=== PATIENT | male | born 1950 | race Asian ===

== ENCOUNTER 2018-11-27 20:05 | Emergency (ER) | payer OTHER ==
[~2018-11-27] VITALS: Ht 172.7 cm; Wt 111.1 kg
[2018-11-27 21:36] LABS: PLATELET COUNT 126 K/uL (142-355)
[2018-11-27 21:55] LABS: POTASSIUM 3.8 mmol/L (3.6-5.2)
[2018-11-27 22:30] VITALS: BP 169/99; TEMP 98
[2018-11-28] MEDS ORDERED: AQUABASE EX (09:17)
[2018-11-28] MEDS ORDERED: AMLODIPINE BESYLATE PO (09:17)
[2018-11-28] MEDS ORDERED: ASPIR-LOW81 MG PO (09:18)
[2018-11-28] MEDS ORDERED: CARV12.5 PO (09:18)
[2018-11-28] MEDS ORDERED: EQL VITAMIN PO (09:19)
[2018-11-28] MEDS ORDERED: D2000 ULTRA2000 UNIT PO (09:19)
[2018-11-28] MEDS ORDERED: HYDR25TA60 PO (09:20)
[2018-11-28] MEDS ORDERED: INSUINJ47 SC (09:21)
[2018-11-28] MEDS ORDERED: ISOS60TA6 PO (09:21)
[2018-11-28] MEDS ORDERED: LISI20TA11 PO (09:22)
[2018-11-28] MEDS ORDERED: TAMSULOSIN0.4 MG PO (09:22)
[2018-11-28] MEDS ORDERED: SIMV40TA57 (09:22)
[2018-11-28] MEDS ORDERED: METFORMIN ER1000 MG PO (09:22)
[2018-11-28] MEDS ORDERED: BRIMONIDINE0.2 % OTIC (09:23)
[2018-11-28] MEDS ORDERED: XALATAN0.005 % OTIC (09:24)
[2018-11-28] MEDS ORDERED: DORZOLAMIDE HYD1 SOL OTIC (09:24)
== END 2018-11-27 22:35 | disposition home or self-care (01) ==
LOC: ED 20:05
PROVIDERS: Internal Medicine
DX: I80.3 Phlebitis and thrombophlebitis of lower extremities, unspecified (principal); M79.604 Pain in right leg; R22.41 Localized swelling, mass and lump, right lower limb
CPT/HCPCS: 36415; 80053; 85027; 96372; 99283; J0696; J1650

== ENCOUNTER 2018-11-28 08:54 | Emergency (ER) | payer OTHER ==
[~2018-11-28] VITALS: Ht 172.7 cm; Wt 111.1 kg
[2018-11-28 09:04] VITALS: TEMP 98.1
[2018-11-28] MEDS ORDERED: AMLODIPINE BESYLATE PO (09:17)
[2018-11-28] MEDS ORDERED: AQUABASE EX (09:17)
[2018-11-28] MEDS ORDERED: ASPIR-LOW81 MG PO (09:18)
[2018-11-28] MEDS ORDERED: CARV12.5 PO (09:18)
[2018-11-28] MEDS ORDERED: D2000 ULTRA2000 UNIT PO (09:19)
[2018-11-28] MEDS ORDERED: EQL VITAMIN PO (09:19)
[2018-11-28] MEDS ORDERED: HYDR25TA60 PO (09:20)
[2018-11-28] MEDS ORDERED: INSUINJ47 SC (09:21)
[2018-11-28] MEDS ORDERED: ISOS60TA6 PO (09:21)
[2018-11-28] MEDS ORDERED: LISI20TA11 PO (09:22)
[2018-11-28] MEDS ORDERED: SIMV40TA57 (09:22)
[2018-11-28] MEDS ORDERED: TAMSULOSIN0.4 MG PO (09:22)
[2018-11-28] MEDS ORDERED: METFORMIN ER1000 MG PO (09:22)
[2018-11-28] MEDS ORDERED: BRIMONIDINE0.2 % OTIC (09:23)
[2018-11-28] MEDS ORDERED: XALATAN0.005 % OTIC (09:24)
[2018-11-28] MEDS ORDERED: DORZOLAMIDE HYD1 SOL OTIC (09:24)
[2018-11-28 10:30] VITALS: BP 151/91
== END 2018-11-28 10:30 | disposition home or self-care (01) ==
LOC: ED 08:54
DX: R60.0 Localized edema (principal)
CPT/HCPCS: 99283

== ENCOUNTER 2019-07-03 17:03 | Observation (INO) | payer OTHER ==
[~2019-07-03] VITALS: Ht 172.7 cm; Wt 110.0 kg
[~2019-07-03 17:03] MED LIST: AMLODIPINE BESYLATE PO; AQUABASE EX; ASPIR-LOW81 MG PO; BRIMONIDINE0.2 % OTIC; CARV12.5 PO; D2000 ULTRA2000 UNIT PO; DORZOLAMIDE HYD1 SOL OTIC; EQL VITAMIN PO; HYDR25TA60 PO; INSUINJ47 SC; ISOS60TA6 PO; LISI20TA11 PO; METFORMIN ER1000 MG PO; SIMV40TA57; TAMSULOSIN0.4 MG PO; XALATAN0.005 % OTIC
[2019-07-03 17:15] VITALS: BP 191/87; TEMP 98
[2019-07-03 18:05] LABS: PLATELET COUNT 122 K/uL (142-355)
[2019-07-03 18:15] LABS: POTASSIUM 3.7 mmol/L (3.6-5.2)
[2019-07-03 21:44] VITALS: BP 188/92; TEMP 97.7
[2019-07-04] VITALS: BP 178/91; TEMP 97.6
[2019-07-04 04:00] VITALS: BP 174/85; TEMP 98
[2019-07-04 08:04] VITALS: BP 107/60; TEMP 98.1
[2019-07-04 08:38] LABS: PLATELET COUNT 131 K/uL (142-355)
== END 2019-07-04 13:25 | disposition home or self-care (01) ==
LOC: ED 17:03 → MED/SURG 20:10
PROVIDERS: Emergency Medicine; ADMIT Internal Medicine
DX: M25.461 Effusion, right knee (principal); M79.661 Pain in right lower leg; I10 Essential (primary) hypertension; H40.89 Other specified glaucoma; E78.49 Other hyperlipidemia; E11.9 Type 2 diabetes mellitus without complications; Z79.4 Long term (current) use of insulin; M15.9 Polyosteoarthritis, unspecified; N40.0 Benign prostatic hyperplasia without lower urinary tract symptoms; M15.8 Other polyosteoarthritis
CPT/HCPCS: 80048; 80053; 85027; 85379; 96372; 96374; 96375; 99220; 99283; G0378; J0360; J1650; J1815; J1885; J3490

== ENCOUNTER 2022-03-03 14:03 | Emergency (ER) | payer OTHER ==
[~2022-03-03] VITALS: Ht 172.7 cm; Wt 109.8 kg
[2022-03-03] MEDS ORDERED: CIPR500T PO (15:43)
[2022-03-03 16:30] VITALS: BP 151/70; TEMP 98.4
== END 2022-03-03 16:30 | disposition home or self-care (01) ==
LOC: ED 14:03
DX: N39.0 Urinary tract infection, site not specified (principal)
CPT/HCPCS: 81000; 87077; 87086; 87088; 87186; 99282

== ENCOUNTER 2022-07-18 23:07 | Emergency (ER) | payer OTHER ==
[~2022-07-18] VITALS: Ht 172.7 cm; Wt 107.5 kg
[~2022-07-18 23:07] MED LIST changes: +CIPR500T PO
[2022-07-18 23:15] VITALS: BP 152/81; TEMP 98.4
== END 2022-07-19 00:55 | disposition home or self-care (01) ==
LOC: ED 23:07
DX: N39.0 Urinary tract infection, site not specified (principal)
CPT/HCPCS: 81000; 81002; 87077; 87086; 87088; 87186; 87490; 87590; 96372; 99283; J0696